=== PATIENT | female | born 1990 | race Caucasian/White ===

== ENCOUNTER → 2016-12-07 | Outpatient (CLI) | payer OTHER ==
[~2016-12-07] MED LIST: PRENTAB26 PO; RANI300T2 PO
[2016-12-10 12:02] LABS: MANUAL MICROSCOPIC REQUIRED? NO; REVIEW REQ? NO
[2016-12-10 12:03] LABS: URINE APPEARANCE CLOUDY (CLEAR); URINE COLOR YELLOW; URINE SPECIFIC GRAVITY 1.021 (1.000-1.030)
[2016-12-10 12:04] LABS: URINE BILIRUBIN NEG (NEG); URINE NITRITE NEG (NEG); UROBILINOGEN NEG (NEG)
[2016-12-10 12:05] LABS: URINE EPITHELIAL CELL AUTO >30 /lpf (0-5)
== END | disposition home or self-care (01) ==
LOC: C.LABSPEC 11:50
PROVIDERS: ATTEND Obstetrics & Gynecology
DX: O24.111 Pre-existing type 2 diabetes mellitus, in pregnancy, first trimester (principal); Z3A.00 Weeks of gestation of pregnancy not specified

== ENCOUNTER → 2016-12-07 | Outpatient (CLI) | payer OTHER ==
[2016-12-10 23:49] LABS: CHLAMYDIA TRACH RNA*** NOT DETECTED (NOT DETECTED); GC (NEIS GONORRHOEAE)RNA** NOT DETECTED (NOT DETECTED)
== END | disposition home or self-care (01) ==
LOC: C.LABSPEC 17:27
PROVIDERS: ATTEND Obstetrics & Gynecology
DX: O24.111 Pre-existing type 2 diabetes mellitus, in pregnancy, first trimester (principal); Z3A.00 Weeks of gestation of pregnancy not specified

== ENCOUNTER → 2016-12-07 | Outpatient (CLI) | payer OTHER ==
[2016-12-07 17:36] LABS: BASO % 0.3 %; BASO ABS # 0.04 K/uL (0-0.2); COMPLETE YES; EOS % 2.6 %; HEMATOCRIT 38.5 % (37-47); IG% 0.2 %; LYMPH % 17.4 %; LYMPH ABS # 2.16 K/uL (1.2-3.4); MEAN CELL VOLUME 86.3 fL (80-100); MEAN CORPUSCULAR HEMOGLOBIN 28.9 pg (25-34); MEAN CORPUSCULAR HGB CONC 33.5 g/dl (32-36); MEAN PLATELET VOLUME 11.4 fL (7.4-10.4); MONO % 5.2 %; NEUT % 74.3 %; PLATELET COUNT 266 K/uL (130-400); RED BLOOD COUNT 4.46 M/uL (4.2-5.4); WHITE BLOOD COUNT 12.38 K/uL (4.8-10.8)
== END | disposition home or self-care (01) ==
LOC: C.LAB1850 16:35
PROVIDERS: ATTEND Obstetrics & Gynecology
DX: O24.111 Pre-existing type 2 diabetes mellitus, in pregnancy, first trimester (principal); Z3A.00 Weeks of gestation of pregnancy not specified

== ENCOUNTER → 2016-12-07 | Outpatient (CLI) | payer OTHER | END | disposition home or self-care (01) | LOC: C.PAPS 08:57 | PROVIDERS: ATTEND Obstetrics & Gynecology | DX: Z12.4 Encounter for screening for malignant neoplasm of cervix (principal) ==

== ENCOUNTER → 2017-02-15 | Outpatient (CLI) | payer OTHER ==
[2017-02-15 18:27] LABS: BLOOD UREA NITROGEN 5 mg/dl (7-18); BUN/CREATININE RATIO 13.3 (10-20); CALCIUM 8.9 mg/dl (8.5-10.1); CARBON DIOXIDE 25 mmol/L (21-32); CHLORIDE 110 mmol/L (98-107); CREATININE 0.37 mg/dl (0.60-1.20); GLUCOSE 73 mg/dl (70-99); SODIUM 140 mmol/L (136-145)
== END | disposition home or self-care (01) ==
LOC: C.LAB 17:13
PROVIDERS: ATTEND Internal Medicine Cardiovascular Disease
DX: R00.2 Palpitations (principal); R00.0 Tachycardia, unspecified

== ENCOUNTER → 2017-02-18 | Outpatient (CLI) | payer OTHER ==
[2017-02-18 12:54] LABS: PATIENT HEIGHT 152.4 cm
[2017-02-18 15:18] LABS: URINE TOTAL PROTEIN 11.3 mg/dl (0-11.9)
[2017-02-18 16:23] LABS: CREATININE 0.51 mg/dl (0.6-1.2); URINE TOTAL PROTEIN CALC 192.1 mg/24 hr (0-149.1)
== END | disposition home or self-care (01) ==
LOC: C.LAB 12:35
PROVIDERS: ATTEND Obstetrics & Gynecology
DX: O24.111 Pre-existing type 2 diabetes mellitus, in pregnancy, first trimester (principal); Z3A.00 Weeks of gestation of pregnancy not specified

== ENCOUNTER → 2017-03-06 | Outpatient (CLI) | payer OTHER ==
[2017-03-06 12:44] LABS: THYROID STIMULATING HORMONE 0.017 uIu/ml (0.300-4.500)
[2017-03-06 12:56] LABS: T3 TOTAL 2.45 ng/ml (0.60-1.81); THYROXINE (T4) 16.3 mcg/dl (4.5-10.9)
[2017-03-07 14:08] LABS: ALKALINE PHOSPHATASE 61 U/L (45-117); ALT/SGPT 31 U/L (12-78); AST/SGOT 23 U/L (15-37)
[2017-03-08 18:43] LABS: TSI <89 % baseline (<140)
== END | disposition home or self-care (01) ==
LOC: C.LAB1850 11:03
PROVIDERS: ATTEND Internal Medicine Endocrinology, Diabetes & Metabolism
DX: E83.42 Hypomagnesemia (principal); R73.03 Prediabetes; R94.6 Abnormal results of thyroid function studies; R80.9 Proteinuria, unspecified

== ENCOUNTER 2017-03-22 17:48 | Observation (INO) | payer OTHER ==
[~2017-03-22] VITALS: Ht 157.5 cm; Wt 85.8 kg
[~2017-03-22 17:48] MED LIST changes: -RANI300T2 PO
[2017-03-22 17:58] VITALS: TEMP 37.1; Ht 157.5 cm; Wt 85.8 kg
[2017-03-22] MEDS ORDERED: ONDANSETRON INJ 2 MG/ML 2 ML VIAL IV PRN (18:15)
--- NOTE | 2017-03-22 18:16 | EMERGENCY ROOM VISIT NOTE ---
History Report prepared by Shelley: Chana Bey Under the Supervision of: Dr. Bassam Mccollum M.D. First contact with patient: 18:02 Chief Complaint: FLANK PAIN Stated Complaint: R SIDE PAIN, VOMITING History of Present Illness The patient is a 27 year old female who presents to the Emergency Room with complaints of worsening right flank pain beginning 1 week ago. She describes the pain as a dull pain that turns into a stabbing pain. The patient has also been vomiting for 2 days and states that she has had trouble urinating. She reports that she is 22 weeks with twins and that she has two children at home. She states that laying on the right side alleviates her pain and taking deep breaths exacerbates her pain. She denies having a fever. Source of History: patient Onset: 1 week ago Position: other (right flank) Quality: stabbing, other (dull) Timing: worsening Modifying Factors (Worsening): breathing (deep breaths) Modifying Factors (Relieving): rest (laying on right side) Associated Symptoms: + vomiting, No fevers Review of Systems All systems have been listed, reviewed, and are negative other than those previously mentioned. Please see Additional Medical History Sheet. Past Medical & Surgical Medical Problems: (1) No significant medical problems (2) Right upper quadrant abdominal pain Surgical Problems: (1) No significant past surgical history Family History Cancer Diabetes mellitus Gallbladder disease Heart disease Hypertension Lung disease Social History Smoking Status: Never Smoker Alcohol Use: none Marital Status: Housing Status: lives with family Occupation Status: employed Current/Historical Medications Scheduled Multivit/Min/Iron/Fol Ac/Pren ( Vitamin), 1 TAB PO DAILY Ranitidine Hcl (Zantac), 300 MG PO DAILY Allergies Coded Allergies: No Known Allergies (Unverified , 06/01/15) Physical Exam Vital Signs Date Time Temp Pulse Resp B/P (MAP) Pulse Ox O2 Delivery O2 Flow Rate FiO2 03/22/17 19:17 133 20 130/93 95 Room Air 03/22/17 18:40 135 24 123/84 Room Air 03/22/17 18:28 147 03/22/17 17:58 37.1 152 18 126/69 96 Room Air Physical Exam GENERAL: Patient awake, alert, oriented x 3, in obvious distress, tearful. Patient follows commands. Patient does not appear toxic. Patient is adequately hydrated and well-nourished. SKIN: No erythema, pallor, cyanosis or rash HEENT: Normal head, pupils equal, reactive to light and accommodation. Oral cavity and posterior pharynx appear normal. Neck: Without adenopathy, no neck vein distention. LUNGS: Clear to auscultation. No wheezes, no rales, no rhonchi. HEART: No murmurs. No gallops. No rubs ABDOMEN: Distended up to xiphoid. Firm. No masses, no rebound, no hepatomegaly or splenomegaly. EXTREMITIES: No signs of trauma. No pedal or pretibial edema. No calf or thigh tenderness. NEUROLOGIC: Cranial nerves II-XII within normal limits. No gross motor sensory function deficits. Medical Decision & Procedures ER Provider Diagnostic Interpretation: Radiology results as stated below per my review and radiologist interpretation: ABDOMINAL ULTRASOUND, RIGHT UPPER QUADRANT HISTORY: RUQ PAIN 22WEEKS PREG WITH TWINS. COMPARISON: None. FINDINGS: Pancreas: Not well visualized due to overlying bowel gas. Liver: Unremarkable. Gallbladder: No gallbladder wall thickening. No gallstones. Gallbladder is partially filled with sludge. CBD: 4 mm. Right kidney: Mild right hydronephrosis. No ureteral stones. IMPRESSION: 1. The gallbladder is partially filled with sludge. No gallbladder wall thickening. No gallstones. 2. Mild right hydronephrosis. No renal calculi or ureteral calculi identified. 3. Pancreas was obscured by overlying bowel gas. Electronically signed by: Charly Owen M.D. 03/22/2017 7:14 PM Dictated Date/Time: 03/22/2017 7:12 PM Laboratory Results 03/22/17 18:25 Red Blood Count 4.28, Mean Corpuscular Volume 85.0, Mean Corpuscular Hemoglobin 29.4, Mean Corpuscular Hemoglobin Concent 34.6, Mean Platelet Volume 11.6, Neutrophils (%) (Auto) 78.7, Lymphocytes (%) (Auto) 11.4, Monocytes (%) (Auto) 9.2, Eosinophils (%) (Auto) 0.3, Basophils (%) (Auto) 0.1, Neutrophils # (Auto) 9.60, Lymphocytes # (Auto) 1.39, Monocytes # (Auto) 1.12, Eosinophils # (Auto) 0.04, Basophils # (Auto) 0.01 03/22/17 18:25 Test 03/22/17 18:25 03/22/17 19:30 White Blood Count 12.20 K/uL (4.8-10.8) Red Blood Count 4.28 M/uL (4.2-5.4) Hemoglobin 12.6 g/dL (12.0-16.0) Hematocrit 36.4 % (37-47) Mean Corpuscular Volume 85.0 fL (80-100) Mean Corpuscular Hemoglobin 29.4 pg (25-34) Mean Corpuscular Hemoglobin Concent 34.6 g/dl (32-36) Platelet Count 244 K/uL (130-400) Mean Platelet Volume 11.6 fL (7.4-10.4) Neutrophils (%) (Auto) 78.7 % Lymphocytes (%) (Auto) 11.4 % Monocytes (%) (Auto) 9.2 % Eosinophils (%) (Auto) 0.3 % Basophils (%) (Auto) 0.1 % Neutrophils # (Auto) 9.60 K/uL (1.4-6.5) Lymphocytes # (Auto) 1.39 K/uL (1.2-3.4) Monocytes # (Auto) 1.12 K/uL (0.11-0.59) Eosinophils # (Auto) 0.04 K/uL (0-0.5) Basophils # (Auto) 0.01 K/uL (0-0.2) RDW Standard Deviation 41.8 fL (36.4-46.3) RDW Coefficient of Variation 13.4 % (11.5-14.5) Immature Granulocyte % (Auto) 0.3 % Immature Granulocyte # (Auto) 0.04 K/uL (0.00-0.02) Prothrombin Time 9.8 SECONDS (9.0-12.0) Prothromb Time International Ratio 0.9 (0.9-1.1) Activated Partial Thromboplast Time 25.8 SECONDS (21.0-31.0) Partial Thromboplastin Ratio 1.0 Anion Gap 9.0 mmol/L (3-11) Est Creatinine Clear Calc Drug Dose 168.4 ml/min Estimated GFR () > 150.0 Estimated GFR (Non- 131.8 BUN/Creatinine Ratio 7.8 (10-20) Calcium Level 9.2 mg/dl (8.5-10.1) Total Bilirubin 0.8 mg/dl (0.2-1) Aspartate Amino Transf (AST/SGOT) 82 U/L (15-37) Alanine Aminotransferase (ALT/SGPT) 129 U/L (12-78) Alkaline Phosphatase 99 U/L (45-117) Total Protein 7.1 gm/dl (6.4-8.2) Albumin 2.5 gm/dl (3.4-5.0) Globulin 4.6 gm/dl (2.5-4.0) Albumin/Globulin Ratio 0.5 (0.9-2) Lipase 115 U/L (73-393) Urine Color DK YELLOW Urine Appearance CLOUDY (CLEAR) Urine pH 6.0 (4.5-7.5) Urine Specific [place] 1.016 (1.000-1.030) Urine Protein TRACE (NEG) Urine Glucose (UA) NEG (NEG) Urine Ketones 4+ (NEG) Urine Occult Blood NEG (NEG) Urine Nitrite NEG (NEG) Urine Bilirubin 1+ (NEG) Urine Urobilinogen POS (NEG) Urine Leukocyte Esterase SMALL (NEG) Urine WBC (Auto) 10-30 /hpf (0-5) Urine RBC (Auto) 0-4 /hpf (0-4) Urine Hyaline Casts (Auto) 1-5 /lpf (0-5) Urine Epithelial Cells (Auto) >30 /lpf (0-5) Urine Bacteria (Auto) 1+ (NEG) Urine Pathogenic Casts /lpf (0) Laboratory results as stated above per my review. Medications Administered Medications (Trade) Dose Ordered Sig/Katrina Route Start Time Stop Time Status Last Admin Dose Admin Ondansetron HCl (Zofran Inj) 4 mg Q1HWA PRN IV 03/22/17 18:15 03/22/17 22:07 DC 03/22/17 18:30 4 MG Morphine Sulfate (MoRPHine SULFATE INJ) 2 mg STK-MED ONCE .ROUTE 03/22/17 18:26 03/22/17 18:27 DC 03/22/17 18:29 2 MG Morphine Sulfate (MoRPHine SULFATE INJ) 4 mg STK-MED ONCE .ROUTE 03/22/17 18:27 03/22/17 18:28 DC 03/22/17 18:30 4 MG Sodium Chloride 2,000 ml @ 1,000 mls/hr Q2H ONCE IV 03/22/17 20:00 03/22/17 21:59 DC 03/22/17 20:06 1,000 MLS/HR Morphine Sulfate (MoRPHine SULFATE INJ) 2 mg STK-MED ONCE .ROUTE 03/22/17 20:00 03/22/17 20:01 DC 03/22/17 20:07 2 MG Morphine Sulfate (MoRPHine SULFATE INJ) 4 mg STK-MED ONCE .ROUTE 03/22/17 20:00 03/22/17 20:02 DC 03/22/17 20:07 4 MG ED Course 1814: Ordered Morphine Sulfate 6 mg IV, Zofran Inj 4 mg IV. 1825: Ordered Morphine Sulfate 2 mg. 1826: Ordered Morphine Sulfate 4 mg. 1947: I checked on the patient and she is feeling a little bit better but still has discomfort. 1999: Ordered Morphine Sulfate 4 mg, ordered Morphine Sulfate 2 mg, Sodium Chloride 2,000 ml @ 1,000 mls/hr IV. 2009: Discussed the patient's case with Dr. Castillo. The patient will be evaluated for further management. Medical Decision Nurses notes reviewed. Medical history sheet reviewed. Differential diagnosis includes but is not limited to: Preeclampsia, HELLP syndrome, cholelithiasis, cholecystitis, UTI, pyelonephritis, and musculoskeletal pain. The patient is 22 weeks with 2 fetuses and 1 placenta. She complains of severe right upper quadrant abdominal pain. It does not appear to be related to food intake. Ultrasound does reveal significant sludge but no stones or evidence of cholecystitis. Patient does not appear to have a urinary tract infection or pyelonephritis. This does not appear to be musculoskeletal in nature. The patient is also significantly dehydrated and ketotic. She was given IV fluids here in the ED. I discussed care further with Dr. Castillo who accepted the patient for further evaluation on the OB floor. Medication Reconcilliation Current Medication List: was personally reviewed by me Blood Pressure Screening Patient's blood pressure: Normal blood pressure Consults Time Called: 1949 Consulting Physician: Dr. Castillo-[facility] Returned Call: 2009 Discussed the patient's case with Dr. Castillo. The patient will be evaluated for further management. Impression Primary Impression: Right flank pain Additional Impressions: DEHYDRATION Ketosis Scribe Attestation The scribe's documentation has been prepared under my direction and personally reviewed by me in its entirety. I confirm that the note above accurately reflects all work, treatment, procedures, and medical decision making performed by me. Departure Information Dispostion Being Evaluated By Hospitalist Referrals Kennedy Ulloa D.O. (PCP) Patient Instructions My [facility] Problem Qualifiers
[2017-03-22] MEDS ORDERED: MoRPHine SULFATE 2 MG/ML CARP ONE ×2 (18:26→20:00)
[2017-03-22] MEDS ORDERED: MoRPHine SULFATE 4 MG/ML 1 ML CARP\\VIAL ONE ×2 (18:27→20:00)
[2017-03-22] MEDS: MoRPHine SULFATE 10 MG/ML CARP/VIAL IV PRN ×2 (18:30→20:08)
[2017-03-22] MEDS ORDERED: RANI300T2 PO (18:33)
[2017-03-22 18:45] LABS: BASO % 0.1 %; BASO ABS # 0.01 K/uL (0-0.2); COMPLETE YES; EOS % 0.3 %; HEMATOCRIT 36.4 % (37-47); IG% 0.3 %; LYMPH % 11.4 %; LYMPH ABS # 1.39 K/uL (1.2-3.4); MEAN CORPUSCULAR HEMOGLOBIN 29.4 pg (25-34); MEAN CORPUSCULAR HGB CONC 34.6 g/dl (32-36); MEAN PLATELET VOLUME 11.6 fL (7.4-10.4); MONO % 9.2 %; NEUT % 78.7 %; PLATELET COUNT 244 K/uL (130-400); RED BLOOD COUNT 4.28 M/uL (4.2-5.4)
[2017-03-22 18:54] LABS: INR 0.9 (0.9-1.1); PROTHROMBIN TIME (PATIENT) 9.8 SECONDS (9.0-12.0)
[2017-03-22 19:03] LABS: ALT/SGPT 129 U/L (12-78); AST/SGOT 82 U/L (15-37); BLOOD UREA NITROGEN 4 mg/dl (7-18); BUN/CREATININE RATIO 7.8 (10-20); CALCIUM 9.2 mg/dl (8.5-10.1); CARBON DIOXIDE 21 mmol/L (21-32); CHLORIDE 106 mmol/L (98-107); CREATININE 0.51 mg/dl (0.60-1.20); GLUCOSE 89 mg/dl (70-99); POTASSIUM 3.6 mmol/L (3.5-5.1); SODIUM 136 mmol/L (136-145)
[2017-03-22 19:06] LABS: ALB/GLOB RATIO 0.5 (0.9-2); ALKALINE PHOSPHATASE 99 U/L (45-117)
--- NOTE | 2017-03-22 19:15 | DIAGNOSTIC IMAGING REPORT ---
ABDOMINAL ULTRASOUND, RIGHT UPPER QUADRANT HISTORY: RUQ PAIN 22WEEKS PREG WITH TWINS. COMPARISON: None. FINDINGS: Pancreas: Not well visualized due to overlying bowel gas. Liver: Unremarkable. Gallbladder: No gallbladder wall thickening. No gallstones. Gallbladder is partially filled with sludge. CBD: 4 mm. Right kidney: Mild right hydronephrosis. No ureteral stones. IMPRESSION: 1. The gallbladder is partially filled with sludge. No gallbladder wall thickening. No gallstones. 2. Mild right hydronephrosis. No renal calculi or ureteral calculi identified. 3. Pancreas was obscured by overlying bowel gas. Electronically signed by: Charly Owen M.D. 03/22/2017 7:14 PM Dictated Date/Time: 03/22/2017 7:12 PM
[2017-03-22 19:41] LABS: URINE APPEARANCE CLOUDY (CLEAR); URINE COLOR DK YELLOW; URINE EPITHELIAL CELL AUTO >30 /lpf (0-5); URINE NITRITE NEG (NEG); URINE SPECIFIC GRAVITY 1.016 (1.000-1.030); UROBILINOGEN POS (NEG); ZZUR CULT IF INDIC CLEAN CATCH YES
[2017-03-22 19:44] LABS: MANUAL MICROSCOPIC REQUIRED? NO; REVIEW REQ? YES; URINE BILIRUBIN 1+ (NEG)
[2017-03-22] MEDS ORDERED: SODIUM CHLORIDE 0.9% 1000ML 2,000 ML IV ONE (20:00)
[2017-03-22 21:15] VITALS: BP 126/75; PULSE 109; O2SAT 99
[2017-03-22] MEDS ORDERED: IV FLUIDS COMPLETED PRN ×2 (21:30→23:30)
[2017-03-22] MEDS ORDERED: ONDANSETRON 4 MG TAB PO PRN (22:00)
[2017-03-22] MEDS ORDERED: PROMETHAZINE HCL INJ 25 MG in SODIUM CHLORIDE 0.9% 50ML 50 ML IV PRN (22:00)
[2017-03-22] MEDS: LACTATED RINGER'S 1000ML 1,000 ML IV SCH (22:13)
[2017-03-23] MEDS: LACTATED RINGER'S 1000ML 1,000 ML IV SCH ×2 (00:21→06:52)
[2017-03-23] MEDS ORDERED: NURSING VERBAL MED ORDER ONE ×3 (01:15→05:00)
[2017-03-23] MEDS ORDERED: ACETAMINOPHEN 325 MG TAB PO PRN (01:30)
[2017-03-23] MEDS ORDERED: BUTORPHANOL TARTRATE 1 MG/ML VIAL IV PRN (04:00)
[2017-03-23] MEDS ORDERED: MoRPHine SULFATE 2 MG/ML CARP IV ONE (05:15)
[2017-03-23 06:35] LABS: BASO % 0.2 %; BASO ABS # 0.02 K/uL (0-0.2); COMPLETE YES; EOS % 0.6 %; IG% 0.2 %; LYMPH % 16.3 %; LYMPH ABS # 1.36 K/uL (1.2-3.4); MEAN CELL VOLUME 86.7 fL (80-100); MEAN CORPUSCULAR HEMOGLOBIN 28.9 pg (25-34); MEAN CORPUSCULAR HGB CONC 33.3 g/dl (32-36); MEAN PLATELET VOLUME 11.4 fL (7.4-10.4); MONO % 11.2 %; NEUT % 71.5 %; PLATELET COUNT 188 K/uL (130-400); RED BLOOD COUNT 3.46 M/uL (4.2-5.4); WHITE BLOOD COUNT 8.34 K/uL (4.8-10.8)
[2017-03-23 07:01] LABS: ALT/SGPT 123 U/L (12-78); AST/SGOT 87 U/L (15-37)
[2017-03-23] MEDS: MoRPHine SULFATE 2 MG/ML CARP IV PRN ×2 (08:24→09:49)
--- NOTE | 2017-03-27 13:26 | DISCHARGE SUMMARY ---
Veronique was observed in labor and delivery on 03/22/2017. She initially had been assessed in the ER by Dr. Mccollum and there was concern over possible cholecystitis. She was twins and 22+ weeks. During her course her pain failed to improve and by the morning of the her liver enzymes were still elevated. I spoke with [facility] and Dr. Palm accepted the patient for transfer. The patient was transferred by ambulance to [facility]. At the time the patient reported right upper quadrant pain. She had no difficulties with vaginal bleeding or discharge; her fetuses were active. PHYSICAL EXAMINATION: VITAL SIGNS: Stable. She was afebrile. CHEST: Clear. CARDIOVASCULAR: Normal rate and rhythm. No audible murmur. ABDOMEN: Gravid. heart rate tones present. Cervix long, thick, closed. IMPRESSION AND PLAN: Transferred to [facility] for assessment of cholecystitis.
== END 2017-03-23 10:15 | disposition short-term general hospital (02) ==
LOC: C.EDB 17:49 → C.LD 20:20 → ENRESERV 20:41
PROVIDERS: ADMIT Obstetrics & Gynecology; ATTEND Obstetrics & Gynecology
DX: R10.11 Right upper quadrant pain (principal); E86.0 Dehydration; O30.002 Twin pregnancy, unspecified number of placenta and unspecified number of amniotic sacs, second trimester; O99.282 Endocrine, nutritional and metabolic diseases complicating pregnancy, second trimester; O24.112 Pre-existing type 2 diabetes mellitus, in pregnancy, second trimester; E88.89 Other specified metabolic disorders; Z83.3 Family history of diabetes mellitus; Z83.79 Family history of other diseases of the digestive system; Z82.49 Family history of ischemic heart disease and other diseases of the circulatory system; Z83.6 Family history of other diseases of the respiratory system; Z3A.22 22 weeks gestation of pregnancy